=== PATIENT | female | born 1950 | race Caucasian/White ===

== ENCOUNTER 2024-11-07 17:18 | Inpatient (IN) ==
[2024-11-07] MEDS ORDERED: IOPAMIDOL 100 ML BOTTLE IV ONE (17:19)
[2024-11-07] MEDS ORDERED: DIATRIZOATE MEGLU/DIATRIZO SOD 30 ML BOTTLE PO ONE (17:19)
[2024-11-07] MEDS: methylPREDNISolone SOD SUCC 125 MG/2 ML VIAL IV ONE (17:40)
[2024-11-07 18:02] LABS: INR 1.2 (0.9-1.1); Prothrombin Time 16.5 sec (11.9-14.5)
[2024-11-07 18:06] LABS: Basophils # (Auto) 0.02 K/mcL (0.00-0.30); Basophils % (Auto) 0.1 % (0.0-2.0); Eosinophils # (Auto) 0.03 K/mcL (0.00-0.70); Eosinophils % (Auto) 0.2 % (0.0-7.0); Hematocrit 41.8 % (34.1-44.9); Lymphocytes # (Auto) 0.52 K/mcL (1.50-4.80); Lymphocytes % (Auto) 3.2 % (15.5-49.0); Mean Cell Volume 100.7 fL (80.0-100.0); Mean Corpuscular HGB Conc 33.5 g/dL (31.0-36.0); Mean Platelet Volume 11.4 fL (8.8-12.5); Monocytes % (Auto) 8.7 % (1.0-12.0); Neutrophils % (Auto) 86.4 % (38.0-78.0); Platelet Count 209 K/mcL (140-440); RBC 4.15 M/mcL (3.59-5.38); Red Cell Distribution Width 12.8 % (11.5-14.5); WBC 16.1 K/mcL (4.5-11.0)
[2024-11-07] MEDS: morphine 4 MG/ML VIAL IV ONE (18:13)
[2024-11-07 18:22] LABS: ALT/SGPT 31 U/L (<40); AST/SGOT 25 U/L (<32); Albumin 3.2 gm/dL (3.2-5.2); Albumin/Globulin Ratio 0.9 (1.0-2.3); Alkaline Phosphatase 78 U/L (39-117); Bilirubin,Total 0.5 mg/dL (0.1-1.0); Blood Urea Nitrogen 17 mg/dL (8-23); Calcium 9.7 mg/dL (8.6-10.4); Carbon Dioxide 23 mmol/L (22-30); Chloride 100 mmol/L (96-108); Globulin 3.4 gm/dL (2.2-3.7); Glomerular Filtration Rate 91; Glucose 145 mg/dL (70-105); Potassium 3.2 mmol/L (3.3-5.1); Sodium 137 mmol/L (133-145)
[2024-11-07] MEDS: HYDROmorphone 0.5 MG/0.5 ML SYRINGE IV ONE (19:51)
[2024-11-07] MEDS: FUROSEMIDE 100 MG/10 ML VIAL IV ONE (19:51)
[2024-11-07] MEDS ORDERED: ACETAMINOPHEN 325 MG TABLET PO PRN (20:40)
[2024-11-07] MEDS ORDERED: PROMETHAZINE 25 MG/ML VIAL IV PRN (20:40)
[2024-11-07] MEDS: CEFEPIME 2 GM VIAL IV SCH (21:21)
[2024-11-07] MEDS: VANCOMYCIN 1,500 MG in 0.9 % SODIUM CHLORIDE 500 ML IV ONE (21:34)
[2024-11-07 22:05] LABS: ABG Methemoglobin 0 % (0.4-1.5); Total Hemoglobin 14.8 gm/Dl (12.0-15.0); VBG Base Excess -4 (-2-3); VBG HCO3 21.2 mmol/L (24.0-28.0); VBG Oxygen Saturation 83.7 % (40.0-70.0); VBG PCO2 37.5 mmHg (41.0-51.0); VBG PH 7.37 U (7.32-7.42); VBG PO2 53.2 mmHg (25.0-40.0); VBG Total CO2 22.4 mmol/L (25.0-29.0)
[2024-11-07] MEDS: METOPROLOL TARTRATE 5 MG/5 ML VIAL IV SCH (22:46)
[2024-11-07] MEDS ORDERED: NITROGLYCERIN 0.4 MG TAB.SUBL SL PRN (22:55)
[2024-11-07] MEDS ORDERED: ALBUTEROL SULFATE 2.5 MG/3 ML NEBULIZER NEB SCH (23:00)
[2024-11-07] MEDS ORDERED: IPRATROPIUM 2.5 ML AMPUL.NEB NEB SCH (23:00)
[2024-11-07] MEDS: PIPERACILLIN SODIUM/TAZOBACTAM 3.375 GM in DEXTROSE 5% IN WATER 50 ML IV SCH ×2 (23:13→23:19)
[2024-11-07] MEDS: morphine 2 MG/ML VIAL IV PRN (23:19)
[2024-11-07] MEDS: methylPREDNISolone SOD SUCC 125 MG/2 ML VIAL IV SCH (23:19)
[2024-11-07] MEDS: morphine 2 MG/ML VIAL ONE (23:20)
[2024-11-07] MEDS: 0.9 % SODIUM CHLORIDE 10 ML SYRINGE IV SCH (23:20)
[2024-11-08] MEDS: VANCOMYCIN PER PHARMACY IV ONE (00:31)
[2024-11-08] MEDS: METOPROLOL TARTRATE 5 MG/5 ML VIAL IV PRN ×2 (01:19→12:44)
[2024-11-08] MEDS: METOPROLOL TARTRATE 5 MG/5 ML VIAL IV ONE (01:23)
[2024-11-08] MEDS: PIPERACILLIN SODIUM/TAZOBACTAM 3.375 GM in DEXTROSE 5% IN WATER 100 ML IV SCH (03:16)
[2024-11-08] MEDS: morphine 2 MG/ML VIAL ONE (03:30)
[2024-11-08 05:41] LABS: ABG Methemoglobin 0.3 % (0.4-1.5); Total Hemoglobin 13.9 gm/Dl (12.0-15.0); VBG Base Excess 0 (-2-3); VBG Oxygen Saturation 90.7 % (40.0-70.0); VBG PCO2 31.4 mmHg (41.0-51.0); VBG PH 7.48 U (7.32-7.42); VBG PO2 90.4 mmHg (25.0-40.0); VBG Total CO2 23.9 mmol/L (25.0-29.0)
[2024-11-08 06:15] LABS: Hemoglobin 13.1 g/dL (11.2-15.7); Mean Corpuscular HGB Conc 33.6 g/dL (31.0-36.0); Mean Platelet Volume 11.2 fL (8.8-12.5); Platelet Count 198 K/mcL (140-440); RBC 3.86 M/mcL (3.59-5.38); Red Cell Distribution Width 12.9 % (11.5-14.5)
[2024-11-08 06:21] LABS: ALT/SGPT 27 U/L (<40); AST/SGOT 23 U/L (<32); Alkaline Phosphatase 68 U/L (39-117); Bilirubin,Total 0.5 mg/dL (0.1-1.0); Blood Urea Nitrogen 17 mg/dL (8-23); Carbon Dioxide 24 mmol/L (22-30); Chloride 101 mmol/L (96-108); Globulin 3.1 gm/dL (2.2-3.7); Glomerular Filtration Rate 96; Glucose 161 mg/dL (70-105); Phosphorous 2.2 mg/dL (2.5-4.5); Potassium 3.1 mmol/L (3.3-5.1); Sodium 139 mmol/L (133-145)
[2024-11-08 07:29] LABS: Lymphocytes % 4 % (15-49); Monocytes % (Manual) 6 % (1-12); Platelet Estimate NORMAL (Normal); RBC Morphology NORMAL (Normal); Segmented Neutrophils % 90 % (38-78)
[2024-11-08] MEDS ORDERED: PANTOPRAZOLE 40 MG TABLET PO SCH (07:30)
[2024-11-08] MEDS: POTASSIUM CHLORIDE 10 MEQ/100 ML BAG IV SCH (08:14)
[2024-11-08] MEDS: LORazepam 2 MG/ML VIAL IV PRN (08:17)
[2024-11-08] MEDS: POTASSIUM CHLORIDE 20 MEQ/15 ML ML PO SCH (08:17)
[2024-11-08] MEDS: FUROSEMIDE 20 MG/2 ML VIAL IV SCH (08:39)
[2024-11-08] MEDS: HYDROcodone/APAP 10/325MG TABLET PO PRN (08:39)
[2024-11-08] MEDS ORDERED: FUROSEMIDE 40 MG/4 ML VIAL IV SCH (09:00)
[2024-11-08] MEDS ORDERED: IOPAMIDOL 100 ML BOTTLE IV ONE (09:36)
[2024-11-08] MEDS ORDERED: VANCOMYCIN PER PHARMACY IV SCH (12:30)
[2024-11-08] MEDS: IPRATROPIUM/ALBUTEROL 3 ML AMPUL.NEB NEB PRN (16:41)
[2024-11-08] MEDS ORDERED: VANCOMYCIN 1,000 MG in 0.9 % SODIUM CHLORIDE 250 ML IV SCH (21:00)
[2024-11-09] MEDS: HYDROmorphone 1 MG/ML SYRINGE IV PRN (02:53)
[2024-11-09 05:49] LABS: ABG Methemoglobin 0 % (0.4-1.5); Total Hemoglobin 14.9 gm/Dl (12.0-15.0); VBG Base Excess 5 (-2-3); VBG HCO3 28.7 mmol/L (24.0-28.0); VBG Oxygen Saturation 82.5 % (40.0-70.0); VBG PCO2 37.5 mmHg (41.0-51.0); VBG PO2 46.9 mmHg (25.0-40.0); VBG Total CO2 29.9 mmol/L (25.0-29.0)
[2024-11-09 06:17] LABS: Basophils # (Auto) 0 K/mcL (0.00-0.30); Basophils % (Auto) 0 % (0.0-2.0); Eosinophils # (Auto) 0 K/mcL (0.00-0.70); Eosinophils % (Auto) 0 % (0.0-7.0); Hematocrit 40.7 % (34.1-44.9); Hemoglobin 13.5 g/dL (11.2-15.7); Lymphocytes % (Auto) 2.1 % (15.5-49.0); Mean Cell Volume 100.5 fL (80.0-100.0); Mean Corpuscular HGB Conc 33.2 g/dL (31.0-36.0); Mean Platelet Volume 10.6 fL (8.8-12.5); Monocytes % (Auto) 7.4 % (1.0-12.0); Neutrophils % (Auto) 90.3 % (38.0-78.0); Platelet Count 241 K/mcL (140-440); RBC 4.05 M/mcL (3.59-5.38); Red Cell Distribution Width 12.9 % (11.5-14.5); WBC 9.5 K/mcL (4.5-11.0)
[2024-11-09 06:20] LABS: Phosphorous 1.8 mg/dL (2.5-4.5)
[2024-11-09 06:47] LABS: Blood Urea Nitrogen 19 mg/dL (8-23); Calcium 9.4 mg/dL (8.6-10.4); Carbon Dioxide 29 mmol/L (22-30); Chloride 101 mmol/L (96-108); Glomerular Filtration Rate 104; Glucose 172 mg/dL (70-105); Potassium 3.8 mmol/L (3.3-5.1); Sodium 142 mmol/L (133-145)
[2024-11-09] MEDS: guaiFENesin/DEXTROMETHORPHAN 5ML UD CUP PO PRN (08:46)
[2024-11-09] MEDS: HYDROcodone/APAP 10/325MG TABLET PO PRN (09:29)
[2024-11-09] MEDS: METOPROLOL SUCCINATE 50 MG TAB.XL.24H PO SCH (09:29)
[2024-11-09] MEDS: POLYETHYLENE GLYCOL 3350 17 GM PACKET PO PRN (09:29)
[2024-11-09] MEDS: 0.9 % SODIUM CHLORIDE 500 ML IV ONE (10:51)
[2024-11-09] MEDS ORDERED: HYDROcodone/APAP 10/325MG TABLET PO PRN (17:54)
[2024-11-09] MEDS ORDERED: ALBUTEROL SULFATE 60 PUFF INHALER INH PRN (17:54)
[2024-11-09] MEDS ORDERED: MIRTAZAPINE 15 MG TABLET PO PRN (18:37)
[2024-11-09] MEDS: traZODone HCL 100 MG TABLET PO PRN (19:53)
[2024-11-09] MEDS: ATORVASTATIN 20 MG TABLET PO SCH (20:07)
[2024-11-09] MEDS: SENNOSIDES 1 TABLET PO PRN (20:07)
[2024-11-09] MEDS: NEUTRA PHOS 1 PACKET PO SCH (20:07)
[2024-11-09] MEDS: DOCUSATE SODIUM 100 MG CAPSULE PO SCH (20:07)
[2024-11-09] MEDS: METHOCARBAMOL 750 MG TABLET PO SCH (20:07)
[2024-11-10] MEDS: DILTIAZEM 125 MG in DEXTROSE 5% IN WATER 100 ML IV SCH (00:17)
[2024-11-10] MEDS: DILTIAZEM 125 MG/25 ML VIAL IV ONE (00:18)
[2024-11-10 05:42] LABS: ABG Methemoglobin 0.1 % (0.4-1.5); Total Hemoglobin 14.7 gm/Dl (12.0-15.0); VBG Base Excess 4 (-2-3); VBG HCO3 28.7 mmol/L (24.0-28.0); VBG Oxygen Saturation 90.3 % (40.0-70.0); VBG PCO2 41.7 mmHg (41.0-51.0); VBG PH 7.46 U (7.32-7.42); VBG PO2 81.5 mmHg (25.0-40.0)
[2024-11-10 06:12] LABS: Basophils # (Auto) 0 K/mcL (0.00-0.30); Basophils % (Auto) 0 % (0.0-2.0); Eosinophils # (Auto) 0 K/mcL (0.00-0.70); Eosinophils % (Auto) 0 % (0.0-7.0); Hematocrit 41.2 % (34.1-44.9); Hemoglobin 13.7 g/dL (11.2-15.7); Lymphocytes # (Auto) 0.21 K/mcL (1.50-4.80); Lymphocytes % (Auto) 2.2 % (15.5-49.0); Mean Cell Volume 101.5 fL (80.0-100.0); Mean Corpuscular HGB Conc 33.3 g/dL (31.0-36.0); Mean Platelet Volume 10.6 fL (8.8-12.5); Monocytes % (Auto) 5.2 % (1.0-12.0); Neutrophils % (Auto) 92.3 % (38.0-78.0); Platelet Count 214 K/mcL (140-440); RBC 4.06 M/mcL (3.59-5.38); Red Cell Distribution Width 12.9 % (11.5-14.5); WBC 9.7 K/mcL (4.5-11.0)
[2024-11-10 06:25] LABS: Phosphorous 1.7 mg/dL (2.5-4.5)
[2024-11-10 06:31] LABS: ALT/SGPT 122 U/L (<40); AST/SGOT 90 U/L (<32); Alkaline Phosphatase 125 U/L (39-117); Bilirubin,Total 0.5 mg/dL (0.1-1.0); Blood Urea Nitrogen 23 mg/dL (8-23); Calcium 9.3 mg/dL (8.6-10.4); Carbon Dioxide 30 mmol/L (22-30); Chloride 99 mmol/L (96-108); Globulin 3.1 gm/dL (2.2-3.7); Glomerular Filtration Rate 104; Glucose 207 mg/dL (70-105); Sodium 138 mmol/L (133-145)
[2024-11-10] MEDS: OMEPRAZOLE 20 MG CAPSULE PO SCH (09:29)
[2024-11-10] MEDS: ESCITALOPRAM 20 MG TABLET PO SCH (09:46)
[2024-11-10] MEDS: POTASSIUM PHOSPHATE 20 MEQ in DEXTROSE 5% IN WATER 250 ML IV SCH (10:32)
[2024-11-10] MEDS ORDERED: DEXAMETHASONE 10 MG/ML VIAL ONE (10:36)
[2024-11-10] MEDS ORDERED: LIDOCAINE 2% PF 5 ML VIAL ONE (10:36)
[2024-11-10] MEDS ORDERED: METOCLOPRAMIDE 10 MG/2 ML VIAL ONE (10:36)
[2024-11-10] MEDS ORDERED: GLYCOPYRROLATE 0.2 MG/ML VIAL IV ONE (10:36)
[2024-11-10] MEDS ORDERED: TRANEXAMIC ACID 1,000 MG/10 ML VIAL ONE (10:36)
[2024-11-10] MEDS ORDERED: ONDANSETRON 4 MG/2 ML VIAL ONE (10:36)
[2024-11-10] MEDS ORDERED: ePHEDrine 50 MG/5 ML SYRINGE (ANEST) IV ONE (10:36)
[2024-11-10] MEDS ORDERED: ROCURONIUM 10 MG/ML ML IV ONE (10:36)
[2024-11-10] MEDS ORDERED: KETAMINE 50 MG/ML Syringe IV ONE (10:38)
[2024-11-10] MEDS: Umeclidinium-Vilanterol [Anoro Ellipta] 62.5-25 INH SCH (10:43)
[2024-11-10] MEDS: DEXTROSE 5%-NS 1,000 ML IV SCH (14:05)
[2024-11-10] MEDS: fentaNYL 2,500 MCG in 0.9 % SODIUM CHLORIDE 200 ML IV SCH (14:06)
[2024-11-10] MEDS ORDERED: VANCOMYCIN PER PHARMACY IV SCH (14:31)
[2024-11-10] MEDS: MIDAZOLAM HCL 50 MG in 0.9 % SODIUM CHLORIDE 90 ML IV SCH (15:10)
[2024-11-10] MEDS: VANCOMYCIN 1,250 MG in 0.9 % SODIUM CHLORIDE 500 ML IV ONE (15:42)
[2024-11-10] MEDS: DEXTROSE 5%-LR 1,000 ML IV SCH (15:43)
[2024-11-10] MEDS: PANTOPRAZOLE 40 MG VIAL IV SCH (17:17)
[2024-11-10] MEDS: CHLORHEXIDINE GLUCONATE 15 ML UDC SWABMOUTH SCH (20:06)
[2024-11-10] MEDS: methylPREDNISolone SOD SUCC 125 MG/2 ML VIAL IV SCH (20:06)
[2024-11-11] MEDS: VANCOMYCIN 1,000 MG in 0.9 % SODIUM CHLORIDE 250 ML IV SCH (00:44)
[2024-11-11] MEDS: MIDAZOLAM HCL 50 MG/10 ML VIAL ONE (03:28)
[2024-11-11 05:43] LABS: ABG Methemoglobin 0.1 % (0.4-1.5); VBG Base Excess 4 (-2-3); VBG HCO3 27.2 mmol/L (24.0-28.0); VBG Oxygen Saturation 94.4 % (40.0-70.0); VBG PCO2 38.1 mmHg (41.0-51.0); VBG PH 7.47 U (7.32-7.42); VBG PO2 100.7 mmHg (25.0-40.0); VBG Total CO2 28.4 mmol/L (25.0-29.0)
[2024-11-11 07:02] LABS: ALT/SGPT 93 U/L (<40); AST/SGOT 44 U/L (<32); Albumin 2.3 gm/dL (3.2-5.2); Albumin/Globulin Ratio 0.9 (1.0-2.3); Alkaline Phosphatase 87 U/L (39-117); Bilirubin,Total 0.3 mg/dL (0.1-1.0); Blood Urea Nitrogen 16 mg/dL (8-23); Calcium 8.3 mg/dL (8.6-10.4); Carbon Dioxide 28 mmol/L (22-30); Chloride 105 mmol/L (96-108); Globulin 2.6 gm/dL (2.2-3.7); Glomerular Filtration Rate 104; Glucose 226 mg/dL (70-105); Potassium 3.9 mmol/L (3.3-5.1); Sodium 142 mmol/L (133-145)
[2024-11-11] MEDS: ONDANSETRON 4 MG/2 ML VIAL IV PRN (07:22)
[2024-11-11 07:37] LABS: Basophils # (Auto) 0.01 K/mcL (0.00-0.30); Basophils % (Auto) 0.1 % (0.0-2.0); Eosinophils # (Auto) 0 K/mcL (0.00-0.70); Eosinophils % (Auto) 0 % (0.0-7.0); Hematocrit 34.3 % (34.1-44.9); Lymphocytes # (Auto) 0.17 K/mcL (1.50-4.80); Lymphocytes % (Auto) 2.5 % (15.5-49.0); Mean Cell Volume 102.7 fL (80.0-100.0); Mean Corpuscular HGB Conc 32.1 g/dL (31.0-36.0); Mean Platelet Volume 11.1 fL (8.8-12.5); Monocytes # (Auto) 0.44 K/mcL (0.10-0.90); Monocytes % (Auto) 6.4 % (1.0-12.0); Neutrophils % (Auto) 90.7 % (38.0-78.0); Platelet Count 177 K/mcL (140-440); RBC 3.34 M/mcL (3.59-5.38); Red Cell Distribution Width 12.6 % (11.5-14.5); WBC 6.9 K/mcL (4.5-11.0)
[2024-11-11] MEDS ORDERED: LORazepam 2 MG/ML VIAL IV PRN (08:40)
[2024-11-11] MEDS: methylPREDNISolone SOD SUCC 40 MG/ML VIAL IV SCH (09:12)
[2024-11-11] MEDS: POTASSIUM PHOSPHATE 40 MEQ in DEXTROSE 5% IN WATER 500 ML IV ONE (10:28)
[2024-11-11] MEDS ORDERED: DILTIAZEM 125 MG in DEXTROSE 5% IN WATER 100 ML IV PRN (10:29)
[2024-11-11] MEDS: DIAZEPAM 10 MG/2 ML SYRINGE IV PRN (10:55)
[2024-11-11] MEDS: METOPROLOL TARTRATE 25 MG TABLET PT SCH (10:55)
[2024-11-11] MEDS: HYDROmorphone 1 MG/ML SYRINGE IV PRN ×2 (11:25→15:50)
[2024-11-11] MEDS: NICOTINE 21 MG PATCH TOPICAL SCH (11:32)
[2024-11-11] MEDS: ACETAMINOPHEN 1,000 MG/100 ML BAG IV SCH (15:20)
[2024-11-11] MEDS: LACTOPEROXI/GLUC OXID/POT THIO 1 EACH GEL..EA. TOPICAL PRN (15:52)
[2024-11-11] MEDS: CHLORHEXIDINE GLUCONATE 15 ML UDC SWABMOUTH SCH (20:18)
[2024-11-12 07:41] LABS: ALT/SGPT 94 U/L (<40); AST/SGOT 34 U/L (<32); Albumin 2.7 gm/dL (3.2-5.2); Albumin/Globulin Ratio 0.9 (1.0-2.3); Alkaline Phosphatase 112 U/L (39-117); Bilirubin,Total 0.5 mg/dL (0.1-1.0); Blood Urea Nitrogen 20 mg/dL (8-23); Calcium 9.3 mg/dL (8.6-10.4); Carbon Dioxide 30 mmol/L (22-30); Chloride 105 mmol/L (96-108); Glomerular Filtration Rate 104; Glucose 190 mg/dL (70-105); Potassium 4.2 mmol/L (3.3-5.1); Sodium 142 mmol/L (133-145)
[2024-11-12 07:42] LABS: Basophils # (Auto) 0.01 K/mcL (0.00-0.30); Basophils % (Auto) 0.1 % (0.0-2.0); Eosinophils # (Auto) 0 K/mcL (0.00-0.70); Eosinophils % (Auto) 0 % (0.0-7.0); Hematocrit 40.5 % (34.1-44.9); Hemoglobin 13.3 g/dL (11.2-15.7); Lymphocytes # (Auto) 0.35 K/mcL (1.50-4.80); Lymphocytes % (Auto) 2.2 % (15.5-49.0); Mean Cell Volume 100.7 fL (80.0-100.0); Mean Corpuscular HGB Conc 32.8 g/dL (31.0-36.0); Mean Platelet Volume 10.8 fL (8.8-12.5); Monocytes # (Auto) 0.74 K/mcL (0.10-0.90); Monocytes % (Auto) 4.7 % (1.0-12.0); Neutrophils % (Auto) 92.4 % (38.0-78.0); Platelet Count 240 K/mcL (140-440); RBC 4.02 M/mcL (3.59-5.38); Red Cell Distribution Width 12.4 % (11.5-14.5); WBC 15.8 K/mcL (4.5-11.0)
[2024-11-12] MEDS ORDERED: 0.9 % SODIUM CHLORIDE 10 ML SYRINGE IV PRN (07:42)
[2024-11-12] MEDS: fentaNYL 75 MCG PATCH TOPICAL SCH (08:01)
[2024-11-12] MEDS ORDERED: LIDOCAINE 1% 20 ML VIAL SQ ONE (09:40)
[2024-11-12] MEDS ORDERED: SODIUM CHLORIDE IRRIG SOLUTION 500 ML BOTTLE IRR ONE (09:40)
[2024-11-12] MEDS: 0.9 % SODIUM CHLORIDE 10 ML SYRINGE IV SCH (10:14)
[2024-11-12] MEDS: FLUCONAZOLE 400 MG/200 ML BAG IV SCH (11:24)
[2024-11-12] MEDS: hydrALAZINE 20 MG/ML VIAL IV PRN (13:15)
[2024-11-12] MEDS: FUROSEMIDE 40 MG/4 ML VIAL IV SCH (15:04)
[2024-11-12] MEDS: BENZOCAINE/MENTHOL 1 LOZENGE PO PRN (15:04)
[2024-11-13 06:27] LABS: Basophils # (Auto) 0 K/mcL (0.00-0.30); Basophils % (Auto) 0 % (0.0-2.0); Eosinophils # (Auto) 0 K/mcL (0.00-0.70); Eosinophils % (Auto) 0 % (0.0-7.0); Hematocrit 42.4 % (34.1-44.9); Hemoglobin 13.9 g/dL (11.2-15.7); Lymphocytes # (Auto) 0.34 K/mcL (1.50-4.80); Lymphocytes % (Auto) 1.9 % (15.5-49.0); Mean Cell Volume 100.2 fL (80.0-100.0); Mean Corpuscular HGB Conc 32.8 g/dL (31.0-36.0); Mean Platelet Volume 10.9 fL (8.8-12.5); Monocytes # (Auto) 0.77 K/mcL (0.10-0.90); Monocytes % (Auto) 4.2 % (1.0-12.0); Neutrophils % (Auto) 92.9 % (38.0-78.0); Platelet Count 274 K/mcL (140-440); RBC 4.23 M/mcL (3.59-5.38); Red Cell Distribution Width 12.5 % (11.5-14.5); WBC 18.2 K/mcL (4.5-11.0)
[2024-11-13 06:43] LABS: ALT/SGPT 61 U/L (<40); AST/SGOT 15 U/L (<32); Albumin 2.8 gm/dL (3.2-5.2); Alkaline Phosphatase 110 U/L (39-117); Bilirubin,Total 0.4 mg/dL (0.1-1.0); Blood Urea Nitrogen 19 mg/dL (8-23); Calcium 9.2 mg/dL (8.6-10.4); Carbon Dioxide 33 mmol/L (22-30); Chloride 103 mmol/L (96-108); Creatine Kinase 40 U/L (24-170); Globulin 2.9 gm/dL (2.2-3.7); Glomerular Filtration Rate 104; Glucose 254 mg/dL (70-105); Potassium 3.8 mmol/L (3.3-5.1); Sodium 145 mmol/L (133-145)
[2024-11-13] MEDS ORDERED: traZODone HCL 100 MG TABLET PO PRN (17:28)
[2024-11-13] MEDS: POTASSIUM PHOSPHATE 20 MEQ in DEXTROSE 5% IN WATER 250 ML IV ONE (18:39)
[2024-11-13] MEDS: MIRTAZAPINE 15 MG TABLET PO PRN (20:58)
[2024-11-13] MEDS ORDERED: MIRTAZAPINE 15 MG TABLET PO PRN (21:00)
[2024-11-14 06:37] LABS: ALT/SGPT 42 U/L (<40); AST/SGOT 11 U/L (<32); Albumin 2.8 gm/dL (3.2-5.2); Alkaline Phosphatase 103 U/L (39-117); Bilirubin,Total 0.4 mg/dL (0.1-1.0); Blood Urea Nitrogen 19 mg/dL (8-23); Carbon Dioxide 34 mmol/L (22-30); Chloride 101 mmol/L (96-108); Globulin 2.7 gm/dL (2.2-3.7); Glomerular Filtration Rate 104; Glucose 221 mg/dL (70-105); Potassium 3.6 mmol/L (3.3-5.1); Sodium 142 mmol/L (133-145)
[2024-11-14 06:38] LABS: Phosphorous 2.5 mg/dL (2.5-4.5)
[2024-11-14 09:19] LABS: Basophils # (Auto) 0.01 K/mcL (0.00-0.30); Basophils % (Auto) 0 % (0.0-2.0); Eosinophils # (Auto) 0.01 K/mcL (0.00-0.70); Eosinophils % (Auto) 0 % (0.0-7.0); Hematocrit 46.8 % (34.1-44.9); Hemoglobin 15.5 g/dL (11.2-15.7); Lymphocytes # (Auto) 0.65 K/mcL (1.50-4.80); Lymphocytes % (Auto) 2.7 % (15.5-49.0); Mean Cell Volume 98.5 fL (80.0-100.0); Mean Corpuscular HGB Conc 33.1 g/dL (31.0-36.0); Mean Platelet Volume 11.1 fL (8.8-12.5); Monocytes # (Auto) 1.11 K/mcL (0.10-0.90); Monocytes % (Auto) 4.7 % (1.0-12.0); Neutrophils % (Auto) 91.7 % (38.0-78.0); Platelet Count 304 K/mcL (140-440); RBC 4.75 M/mcL (3.59-5.38); Red Cell Distribution Width 12.4 % (11.5-14.5); WBC 23.8 K/mcL (4.5-11.0)
[2024-11-14] MEDS: POTASSIUM PHOSPHATE 40 MEQ in DEXTROSE 5% IN WATER 500 ML IV ONE (11:27)
[2024-11-14] MEDS: LACTULOSE 20 GM/30 ML ORAL.SOL PO SCH (12:45)
[2024-11-14] MEDS ORDERED: IOPAMIDOL 100 ML BOTTLE IV ONE (14:28)
[2024-11-14] MEDS: MELATONIN 3 MG TABLET PO SCH (20:09)
[2024-11-15 06:31] LABS: Basophils # (Auto) 0 K/mcL (0.00-0.30); Basophils % (Auto) 0 % (0.0-2.0); Eosinophils # (Auto) 0.01 K/mcL (0.00-0.70); Eosinophils % (Auto) 0 % (0.0-7.0); Hematocrit 41.4 % (34.1-44.9); Hemoglobin 13.8 g/dL (11.2-15.7); Lymphocytes # (Auto) 0.46 K/mcL (1.50-4.80); Lymphocytes % (Auto) 2.1 % (15.5-49.0); Mean Cell Volume 99.8 fL (80.0-100.0); Mean Corpuscular HGB Conc 33.3 g/dL (31.0-36.0); Mean Platelet Volume 11.3 fL (8.8-12.5); Monocytes # (Auto) 0.81 K/mcL (0.10-0.90); Monocytes % (Auto) 3.7 % (1.0-12.0); Neutrophils % (Auto) 93.3 % (38.0-78.0); Platelet Count 251 K/mcL (140-440); RBC 4.15 M/mcL (3.59-5.38); Red Cell Distribution Width 12.5 % (11.5-14.5); WBC 22.2 K/mcL (4.5-11.0)
[2024-11-15 06:37] LABS: Phosphorous 2.4 mg/dL (2.5-4.5)
[2024-11-15 06:46] LABS: ALT/SGPT 45 U/L (<40); AST/SGOT 19 U/L (<32); Albumin 2.8 gm/dL (3.2-5.2); Albumin/Globulin Ratio 1.1 (1.0-2.3); Alkaline Phosphatase 107 U/L (39-117); Bilirubin,Total 0.4 mg/dL (0.1-1.0); Blood Urea Nitrogen 17 mg/dL (8-23); Calcium 8.6 mg/dL (8.6-10.4); Carbon Dioxide 33 mmol/L (22-30); Chloride 96 mmol/L (96-108); Globulin 2.5 gm/dL (2.2-3.7); Glomerular Filtration Rate 104; Glucose 251 mg/dL (70-105); Potassium 4.1 mmol/L (3.3-5.1); Sodium 136 mmol/L (133-145)
[2024-11-16 06:27] LABS: ALT/SGPT 42 U/L (<40); AST/SGOT 17 U/L (<32); Albumin/Globulin Ratio 1.3 (1.0-2.3); Alkaline Phosphatase 108 U/L (39-117); Bilirubin,Total 0.4 mg/dL (0.1-1.0); Blood Urea Nitrogen 18 mg/dL (8-23); Calcium 8.6 mg/dL (8.6-10.4); Carbon Dioxide 33 mmol/L (22-30); Chloride 94 mmol/L (96-108); Globulin 2.3 gm/dL (2.2-3.7); Glomerular Filtration Rate 104; Glucose 245 mg/dL (70-105); Phosphorous 2.1 mg/dL (2.5-4.5); Potassium 4.1 mmol/L (3.3-5.1); Sodium 134 mmol/L (133-145)
[2024-11-16 06:30] LABS: Basophils # (Auto) 0.01 K/mcL (0.00-0.30); Basophils % (Auto) 0.1 % (0.0-2.0); Eosinophils # (Auto) 0 K/mcL (0.00-0.70); Eosinophils % (Auto) 0 % (0.0-7.0); Hematocrit 41.7 % (34.1-44.9); Hemoglobin 13.8 g/dL (11.2-15.7); Lymphocytes # (Auto) 0.41 K/mcL (1.50-4.80); Lymphocytes % (Auto) 2.3 % (15.5-49.0); Mean Corpuscular HGB Conc 33.1 g/dL (31.0-36.0); Mean Platelet Volume 11.3 fL (8.8-12.5); Monocytes # (Auto) 1.13 K/mcL (0.10-0.90); Monocytes % (Auto) 6.3 % (1.0-12.0); Neutrophils % (Auto) 90.1 % (38.0-78.0); Platelet Count 278 K/mcL (140-440); RBC 4.17 M/mcL (3.59-5.38); Red Cell Distribution Width 12.4 % (11.5-14.5); WBC 17.9 K/mcL (4.5-11.0)
[2024-11-16] MEDS: SODIUM PHOSPHATE 15 MMOL in DEXTROSE 5% IN WATER 250 ML IV ONE (13:12)
== END 2024-11-16 13:36 | disposition short-term general hospital (02) | DRG 907 ==
LOC: ED 17:18 → ICU 22:05
PROVIDERS: ADMIT Surgery; ATTEND Internal Medicine